=== PATIENT | male | born 1990 | race Two or more races ===

== ENCOUNTER 2025-01-22 23:11 | Emergency (ER) | payer SELFPAY ==
[2025-01-22 23:15] VITALS: BP 149/99; PULSE 75; RESP 18; TEMP 36.7; O2SAT 98
[2025-01-22 23:19] VITALS: BMI 26.4
--- NOTE | 2025-01-22 23:32 | PD.EDMEDCL ---
ED Medical Clearance RME/HPI General Chief complaint: Medical Clearance Stated complaint: MEDICAL CLEARANCE Time Seen by Provider: 01/22/25 23:32 Arrival date/time: 01/22/25 23:11 RME / HPI RME / HPI Narrative: See [facility] for Dr. Chi's HPI Documentation. Related Information Allergies Allergy/AdvReac Type Severity Reaction Status Date / Time No Known Allergies Allergy Verified 01/22/25 23:23 Review of Systems Review of Systems Systems Reviewed: All systems reviewed, normal except as documented Past Medical History Past Medical History PSYCHO/SOCIAL: Positive Recreational Drug Use Social History SUBSTANCE USE: methamphetamine ED Exam Narrative Physical exam: See MDM for Dr. Chi's Physical Exam Documentation. Course Quality Measures none Orders Category Date Time Status EKG (ED ONLY) *Do not use* NOW Care 01/22/25 23:33 Completed Saline [Insert IV] NOW Care 01/22/25 23:32 Completed Straight [In and Out Catheter] X1 Care 01/22/25 23:32 Completed EKG (ED Only) Stat Exams 01/22/25 23:33 Ordered XR chest 1V portable Stat Exams 01/22/25 23:33 Completed Acetaminophen Stat Lab 01/22/25 23:36 Completed Alcohol, Blood Medical Stat Lab 01/22/25 23:36 Completed Ammonia Stat Lab 01/22/25 23:36 Completed Bilirubin,Direct Stat Lab 01/22/25 23:36 Completed CBC Stat Lab 01/22/25 23:36 Completed CMP [Comprehensive Metabolic Panel] Stat Lab 01/22/25 23:36 Completed Drug Screen,Urine Stat Lab 01/22/25 23:42 Completed Lipase Stat Lab 01/22/25 23:36 Completed Magnesium Stat Lab 01/22/25 23:36 Completed Salicylate Stat Lab 01/22/25 23:36 Completed TSH [Thyroid Stimulating Hormone] Stat Lab 01/22/25 23:36 Completed Troponin I Stat Lab 01/22/25 23:36 Completed NALOXONE INJ (Syringe) [Narcan Inj (Syringe)] Med 01/23/25 00:49 Discontinued 4 mg IV X1 ONE NALOXONE INJ (Syringe) [Narcan Inj (Syringe)] Med 01/23/25 01:13 Discontinued 4 mg IV X1 ONE NALOXONE INJ (Vial) [Narcan Inj (Vial)] Med 01/23/25 00:24 Discontinued 2 mg IV X1 ONE NALOXONE INJ (Vial) [Narcan Inj (Vial)] Med 01/23/25 00:45 Discontinued 4 mg IV X1 ONE NALOXONE INJ (Vial) [Narcan Inj (Vial)] Med 01/23/25 01:07 Discontinued 4 mg IV X1 ONE Ondansetron Inj [Zofran Inj] Med 01/22/25 23:33 Discontinued 4 mg IVP X1 ONE Sodium Chloride 0.9% 1000 ml [Ns] 1,000 ml Med 01/22/25 23:33 Discontinued IV 999 mls/hr Sodium Chloride 0.9% 1000 ml [Ns] 1,000 ml Med 01/23/25 01:08 Discontinued IV 999 mls/hr flumazeniL [Romazicon Inj] Med 01/23/25 00:57 Discontinued 0.2 mg IVP X1 ONE Vital Signs Vital signs: Vital Signs Temperature 98.0 F 01/22/25 23:15 Pulse Rate 75 01/22/25 23:15 Respiratory Rate 18 01/22/25 23:15 Blood Pressure 149/99 H 01/22/25 23:15 Pulse Oximetry (%) 98 01/22/25 23:15 Oxygen Delivery Method Room Air 01/22/25 23:15 Medical Clearance MDM Narrative MDM Narrative:: This section includes all my notes and documentations, including HPI, PE, and ED course. Asaf Chi MD HPI: 34 y/o male with Hx of Recreational Drug Use BIB [employer] here for residential medical clearance. Patient was arrested on a warrant. During the car ride to residential, officer noted possible lethargy. At the residential, patient was sent here for medical clearance due to possible lethargy. Can't obtain history from the patient due to current clinical condition. ROS: Unable to obtain from the patient due to current clinical condition. Physical Exam: General: Possible lethargy noted. Eyes: Conjunctivae and lids clear. EOMI. PERRL. ENT: No nasal congestion. Pharynx normal. Tympanic membrane normal bilaterally. Patent airway. Neck: Supple. Heart: RRR. Lungs: No respiratory distress. Good air movement. No rhonchi, wheezing, rales. Chest: No tenderness. Abdomen: Soft and nontender. Normal bowel sounds. No distension. No rebound or guarding. Back: No tenderness. Legs: No clubbing, cyanosis, edema. Skin: Warm and dry. Neuro: Cranial Nerves II-XII grossly intact. No peripheral motor deficits. Musculoskeletal: All major joints and bones are not tender with no limited ROM. I reviewed all diagnostic test results: My interpretation of the EKG: NSR (66 bpm) with no ST-T changes. My interpretation of the chest x-ray is: NAD. Blood tests and urine tests remarkable for positive UDS for fentanyl and methamphetamine. At this point, diagnoses include: Medical Clearance for Incarceration Treatment here included: IVF and Zofran 4 mg IV Narcan 2 mg then 4 mg then 4 mg IV Flumazenil 0.2 mg IV No obvious improvement noted. But when the patient was helped up and out of bed, he was able to stand and walk with no problem. Based on my best medical judgment, made decision to medically clear the patient for residential and no further evaluation or treatment indicated at this time. Patient understands and agrees to the discharge instructions customized and printed, see below. Discharge Instructions from Dr. Chi printed for you: 1. After evaluation, you are medically cleared for residential. 2. To prevent serious injuries and illnesses, some fatal, avoid all drugs, including fentanyl and methamphetamine. 3. Seek immediate medical care with any concerns. Asaf Chi MD Patient data External records reviewed:: [facility] previous records (No prior ED records available for review) Clinical information provided by:: patient and law enforcement Social determinants that could affect healthcare access:: substance use (Methamphetamine) Patient has the following chronic illnesses:: Recreational Drug Use How is presenting disease/condition affected by chronic disease/condition?: exacerbated by Evaluation data The following diagnostics were reviewed and interpreted by me:: lab results and EKG tracing(s) (My interpretation of the EKG: NSR (66 bpm) with no ST-T changes. Asaf Chi MD) Lab and/or radiology exams considered but not ordered:: None Interpretation Summary: I reviewed all diagnostic test results: My interpretation of the EKG: NSR (66 bpm) with no ST-T changes. My interpretation of the chest x-ray is: NAD. Blood tests and urine tests remarkable for positive UDS for fentanyl and methamphetamine. Medications / Prescriptions Medications or Prescriptions considered but not ordered:: None Medication administrations:: Medication Administration History Discontinued Medications Flumazenil (Flumazenil Inj 0.1 Mg/Ml Vial 10 Ml) 0.2 mg IVP X1 ONE Stop: 01/23/25 00:58 Last Admin: 01/23/25 01:00 Dose: 0.2 mg Documented By: LOVE Sodium Chloride (Ns) 1,000 mls @ 999 mls/hr IV .Q1H1M ONE Stop: 01/23/25 00:33 Last Infusion: 01/23/25 00:24 Dose: Infused Documented By: Admin: 01/22/25 23:51 Dose: 999 mls/hr Documented By: LOVE Sodium Chloride (Ns) 1,000 mls @ 999 mls/hr IV .Q1H1M ONE Stop: 01/23/25 02:08 Last Admin: 01/23/25 01:21 Dose: 999 mls/hr Documented By: LOVE Naloxone HCl (Naloxone Inj 0.4 Mg/Ml Vial) 2 mg IV X1 ONE Stop: 01/23/25 00:25 Last Admin: 01/23/25 00:40 Dose: 2 mg Documented By: LOVE Co-signed By: LIVIA Naloxone HCl (Naloxone Inj 0.4 Mg/Ml Vial) 4 mg IV X1 ONE Stop: 01/23/25 00:46 Last Admin: 01/23/25 00:51 Dose: Not Given Documented By: LOVE Non-Admin Reason: Cancelled by Provider Naloxone HCl (Naloxone Inj 1 Mg/Ml Syringe 2 Ml) 4 mg IV X1 ONE Stop: 01/23/25 00:50 Last Admin: 01/23/25 00:54 Dose: 4 mg Documented By: LOVE Naloxone HCl (Naloxone Inj 0.4 Mg/Ml Vial) 4 mg IV X1 ONE Stop: 01/23/25 01:08 Last Admin: 01/23/25 01:18 Dose: Not Given Documented By: LOVE Non-Admin Reason: Cancelled by Provider Naloxone HCl (Naloxone Inj 1 Mg/Ml Syringe 2 Ml) 4 mg IV X1 ONE Stop: 01/23/25 01:14 Last Admin: 01/23/25 01:17 Dose: 4 mg Documented By: LOVE Ondansetron HCl (Ondansetron Inj 2 Mg/Ml Inj 2 Ml) 4 mg IVP X1 ONE; Protocol Stop: 01/22/25 23:34 Last Admin: 01/22/25 23:51 Dose: 4 mg Documented By: LOVE Treatment here included: IVF and Zofran 4 mg IV Narcan 2 mg then 4 mg then 4 mg IV Flumazenil 0.2 mg IV Consultations Consultation(s) initiated? (list below): No Diagnosis Medical Clearance Differential Diagnosis: other (Methamphetamine abuse, Alcohol intoxication, Polysubstance abuse) Most likely diagnosis given after review of the tests above:: Medical Clearance for Incarceration Admission Indicated Admission indicated?: not indicated Explain why admission is indicated or not indicated:: With significant improvement and no condition needing emergent intervention, there was no indication for admission. Admission Request Was there a request for admission?: No Disposition Plan Disposition Plan: other (specify) Discharge Plan Plan Patient Disposition: [facility]/Court/Law Problem List Clinical Impression: Medical clearance for incarceration Patient/Caregiver Discharge Instructions Discharge Activity: activity as tolerated Education Materials: ED Drug Abuse Additional Instructions: Discharge Instructions from Dr. Chi printed for you: 1. After evaluation, you are medically cleared for residential. 2. To prevent serious injuries and illnesses, some fatal, avoid all drugs, including fentanyl and methamphetamine. 3. Seek immediate medical care with any concerns. Print Language: [place]
--- NOTE | 2025-01-22 23:33 | XR_ITS ---
EXAMINATION: AP chest single view TECHNIQUE: AP portable semiupright chest single view Date and time: January 22, 2025, 11:41 p.m. INDICATION: Shortness of breath today. FINDINGS: Normal heart size Lungs are clear. The osseous structures are intact IMPRESSION: No active disease
[2025-01-22] MEDS: SODIUM CHLORIDE 0.9% 1000 ML 1,000 ML 999 ML IV (23:51)
[2025-01-22] MEDS: ONDANSETRON INJ 2 MG/ML INJ 2 ML 4 MG IVP (23:51)
[2025-01-23 00:01] LABS: Basophils # (Auto) 0.0 Thou/mm3 (0.0-0.2); Basophils % (Auto) 0 % (0-2.5); Eosinophils # (Auto) 0.2 Thou/mm3 (0.0-0.5); Eosinophils % (Auto) 3 % (0-10); Hematocrit 43.5 % (41.0-53.0); Hemoglobin 14.5 g/dL (13.5-16.0); Immature Granulocytes Auto 0.02 Thou/mm3 (0.00-0.00); Lymphocytes # (Auto) 1.6 Thou/mm3 (1.0-4.8); Lymphocytes % (Auto) 21 % (10-50); Mean Corpuscular HGB Conc 33.3 g/dl (31.0-37.0); Mean Corpuscular Hemoglobin 30.7 pg (25.0-35.0); Mean Corpuscular Volume 92 fL (80-100); Monocytes # (Auto) 0.6 Thou/mm3 (0.0-0.8); Monocytes % (Auto) 9 % (0-12); Neutrophils # (Auto) 5.0 Thou/mm3 (1.8-7.7); Neutrophils % (Auto) 67 % (37-80); Nucleated Red Blood Cell # 0.00 Thou/mm3 (0.00-0.00); Nucleated Red Blood Cell % 0 /100 WBC (0); Platelet Count 219 Thou/mm3 (140-440); RDW Standard Deviation 44.5 fL (35.1-43.9); Red Blood Count 4.72 Miln/mm3 (4.50-5.90); White Blood Count 7.5 Thou/mm3 (3.8-10.6)
[2025-01-23 00:03] LABS: Ammonia 31 uMol/L (11-32)
[2025-01-23 00:12] LABS: Amphetamine/Methamp Scrn,U Positive (Negative); Barbiturate Screen,Urine Negative (Negative); Benzodiazepines Screen,Urine Negative (Negative); Benzoylecgonine Screen, Ur Negative (Negative); Fentanyl Screen,Urine Positive (Negative); Opiate Screen,Urine Negative (Negative); THC Screen,Urine Negative (Negative)
[2025-01-23 00:12] LABS: Acetaminophen < 2.0 mcg/mL (10.0-20.0); Alanine Aminotransferase 19 U/L (10-49); Albumin, Serum 4.5 gm/dL (3.5-5.0); Albumin/Globulin Ratio 1.8 (1.2-2.2); Alcohol, Blood Medical < 3.0 mg/dL (0-10.0); Alkaline Phosphatase 72 U/L (46-116); Anion Gap 8 (7-16); Aspartate Amino Transferase 25 U/L (0-34); BUN/Creatinine Ratio 21 Ratio (12-20); Bilirubin,Direct 0.2 mg/dL (0.0-0.3); Bilirubin,Total 0.5 mg/dL (0.3-1.2); Blood Urea Nitrogen 17 mg/dL (9-23); Calcium 9.4 mg/dL (8.3-10.6); Calcium (Corrected) 9.4 mg/dL (8.5-10.1); Carbon Dioxide 30.6 mMol/L (20.0-31.0); Chloride 104 mMol/L (98-107); Creatinine (Component) 0.8 mg/dL (0.6-1.3); Estimated Creatinine Clearance 96.5 mL/min (>60); Globulin 2.5 gm/dL (2.3-3.5); Glucose 125 mg/dL (74-106); Lipase 28 U/L (12-53); Magnesium 2.1 mg/dL (1.6-2.6); Osmolality,Calculated 287 (275-295); Potassium 3.8 mMol/L (3.4-5.1); Salicylate < 3.0 mg/dL; Sodium 143 mMol/L (136-145); Thyroid Stimulating Hormone 1.41 uIU/mL (0.55-4.78); Total Protein 7.0 gm/dL (5.7-8.2); Troponin I < 0.020 ng/mL (0.0-0.045); eGFR > 60 See Note
[2025-01-23] MEDS: NALOXONE INJ 1 MG/ML SYRINGE 2 ML 4 MG IV ×2 (00:54→01:17)
[2025-01-23] MEDS: FLUMAZENIL INJ 0.1 MG/ML VIAL 10 ML 0.2 MG IVP (01:00)
[2025-01-23] MEDS: SODIUM CHLORIDE 0.9% 1000 ML 1,000 ML 999 ML IV (01:21)
[2025-01-23 01:31] VITALS: BP 107/77; PULSE 67; RESP 15; TEMP 36.6; O2SAT 99
--- NOTE | 2025-01-23 01:39 | PC.NURSE ---
PT VITALS STABLE PT AWAKE AND AMBULATORY, MAEVE EDMOND OKAYED PT FOR MED CLEARANCE
--- NOTE | 2025-01-23 01:42 | PC.NURSE ---
Vital signs were obtained (see worklist). consumer safety officer present at the bedside with the patient. Dr. Chi was at the bedside and confirmed the decision to discharge the patient. At the time of discharge, the patient appeared lethargic, responding to stimuli, and does not verbally respond. The provider is aware of the patient?s current condition and has agreed to discharge the patient to the officer. Discharge info was given to the officer. The patient was able to ambulate with assistance at the time of discharge.
== END 2025-01-23 01:43 ==
LOC: SERX 01-23 01:30
PROVIDERS: Emergency Provider Emergency Medicine
DX: Z02.89 Encounter for other administrative examinations (principal)
CPT/HCPCS: 36415; 71045; 80053; 80307; 80320; 80329; 82140; 82248; 83690; 83735; 84443; 84484; 85025; 93005; 99284; J2312; J2405; J3490; J7030; G0480